=== PATIENT | male | born 1950 | race Caucasian/White ===

== ENCOUNTER 2020-07-07 13:10 | Emergency (ER) | payer MEDICARE, OTHER ==
[~2020-07-07 13:10] MED LIST: ALDACTONE 25MG25 MG PO; AUGMENTIN 875-1 EACH PO; BUMETANIDE1 MG PO; CALCIUM 600 +1 EAC7 PO; CARVEDILOL3.125 MG PO; COREG 12.5MG12.5 MG PO; ECOTRIN81 MG PO; FOLIC ACID1 MG PO; HYDROCHLOROTHIA25 MG PO; INVANZ 1 GM VIAL1 GM IM; IRON PO; K-DUR TAB 10 M10 MEQ PO; K-TAB ER20 MEQ PO; LASIX80 MG PO; LEFLUNOMIDE20 MG PO; LUTEIN20 M1 PO; MELATONIN5 MG PO; METHOTREXATE2.5 MG PO; PAXIL40 MG PO; PLAQUENIL 200200 MG PO; PREDNISONE5 MG PO; PROTONIX 40 MG40 M1 PO; STOOL SOFTENER1 EACH PO; ULTRAM50 MG PO; VASOTEC 10 MG T10 MG PO; WARFARIN SODIUM2 MG PO; WARFARIN SODIUM4 MG PO
[2020-07-07 14:27] LABS: HEMOGLOBIN 12.5 gm/dl (14.0-17.5); RED BLOOD COUNT 4.07 M/UL (4.20-5.50); WHITE BLOOD COUNT 7.2 K/UL (4.5-11.0)
== END 2020-07-07 16:36 | disposition home or self-care (01) ==
LOC: ER1 13:10
PROVIDERS: Physician Assistant
DX: F03.90 Unspecified dementia, unspecified severity, without behavioral disturbance, psychotic disturbance, mood disturbance, and anxiety (principal); I10 Essential (primary) hypertension; M06.9 Rheumatoid arthritis, unspecified; Z90.49 Acquired absence of other specified parts of digestive tract; Z79.01 Long term (current) use of anticoagulants
CPT/HCPCS: 70450; 71045; 80053; 81001; 85025; 93005; 99285

== ENCOUNTER 2020-07-22 17:30 | Emergency (ER) | payer MEDICARE, OTHER ==
[2020-07-22 18:12] LABS: HEMOGLOBIN 10.8 gm/dl (14.0-17.5); RED BLOOD COUNT 3.52 M/UL (4.20-5.50)
[2020-07-22 18:48] LABS: BUN/CREATININE RATIO 16 (0-10)
[2020-07-22] MEDS ORDERED: DOXYCYCLINE HY100 MG PO (19:33)
== END 2020-07-22 20:46 | disposition home or self-care (01) ==
LOC: ER1 17:30
PROVIDERS: Family Medicine
DX: J20.9 Acute bronchitis, unspecified (principal); F41.9 Anxiety disorder, unspecified; E66.01 Morbid (severe) obesity due to excess calories; I50.9 Heart failure, unspecified; F32.9 Major depressive disorder, single episode, unspecified; Z79.899 Other long term (current) drug therapy; Z79.01 Long term (current) use of anticoagulants; Z86.718 Personal history of other venous thrombosis and embolism
CPT/HCPCS: 36600; 71045; 80053; 80307; 81001; 82550; 82553; 82803; 83605; 83874; 83880; 84439; 84443; 84484; 85025; 85610; 87040; 93005; 99284

== ENCOUNTER 2021-12-17 07:35 | Inpatient (IN) | payer MEDICARE, OTHER ==
[~2021-12-17] VITALS: Ht 172.7 cm; Wt 135.2 kg
[~2021-12-17 07:35] MED LIST changes: +AUGMENTIN400 MG/5 M PO; +DEXAMETHASONE6 MG PO; +DOXYCYCLINE HY100 MG PO; -IRON PO; +IRON325 M1 PO; -K-TAB ER20 MEQ PO; +POTASSIUM CHLO20 ME2 PO
[2021-12-17 08:19] LABS: HEMOGLOBIN 14.3 gm/dl (14.0-17.5); RED BLOOD COUNT 4.53 M/UL (4.20-5.50); WHITE BLOOD COUNT 8.4 K/UL (4.5-11.0)
[2021-12-17] MEDS ORDERED: ACETAMINOPHEN500 MG PO (12:04)
[2021-12-17] MEDS ORDERED: CARVEDILOL12.5 MG PO (12:05)
[2021-12-17] MEDS ORDERED: WARFARIN SODIUM1 MG PO (12:08)
[2021-12-17] MEDS ORDERED: SPIRONOLACTONE25 MG PO (12:09)
[2021-12-17] MEDS ORDERED: NAMENDA5 MG PO (12:11)
[2021-12-17] MEDS ORDERED: TORSEMIDE20 MG PO (12:12)
[2021-12-17] MEDS ORDERED: SEROQUEL100 MG PO (12:13)
[2021-12-18 02:33] LABS: RED BLOOD COUNT 4.19 M/UL (4.20-5.50); WHITE BLOOD COUNT 5.8 K/UL (4.5-11.0)
[2021-12-18 23:01] LABS: ESCHERICHIA COLI Not Detected (Negative); HAEMOPHILUS INFLUENZAE Not Detected (Negative); KLEBSIELLA OXYTOCA Not Detected (Negative); KLEBSIELLA PNEUMONIAE Not Detected (Negative); KPC-CARBAPENEM-RESISTANCE GENE Not Detected (Negative); PROTEUS Not Detected (Negative); PSEUDOMONAS AERUGINOSA Not Detected (Negative); SERRATIA MARCESANS Not Detected (Negative); STAPHYLOCOCCUS AUREUS Not Detected (Negative); STREP AGALACTIAE (GROUP B) Not Detected (Negative); STREP PYOGENES (GROUP A) Not Detected (Negative); STREPTOCOCCUS Not Detected (Negative); vanA/B (VANCOMYCIN RESIST GENE Not Detected (Negative)
[2021-12-18 23:02] LABS: CANDIDA ALBICANS Not Detected (Negative); CANDIDA KRUSEI Not Detected (Negative); CANDIDA TROPICALIS Not Detected (Negative)
[2021-12-19 01:19] LABS: STAPHYLOCOCCUS DETECTED (Negative)
[2021-12-19 02:35] LABS: HEMOGLOBIN 13.1 gm/dl (14.0-17.5); RED BLOOD COUNT 4.23 M/UL (4.20-5.50); WHITE BLOOD COUNT 6.6 K/UL (4.5-11.0)
[2021-12-19 03:07] LABS: BUN/CREATININE RATIO 32 (0-10)
[2021-12-19] MEDS ORDERED: BUPROPION HCL100 M1 PO (10:21)
[2021-12-20 02:56] LABS: HEMOGLOBIN 13.8 gm/dl (14.0-17.5); RED BLOOD COUNT 4.39 M/UL (4.20-5.50); WHITE BLOOD COUNT 5.9 K/UL (4.5-11.0)
[2021-12-21 05:30] LABS: HEMOGLOBIN 13.2 gm/dl (14.0-17.5); RED BLOOD COUNT 4.31 M/UL (4.20-5.50); WHITE BLOOD COUNT 7.3 K/UL (4.5-11.0)
[2021-12-22 05:28] LABS: HEMOGLOBIN 14.3 gm/dl (14.0-17.5); RED BLOOD COUNT 4.58 M/UL (4.20-5.50)
[2021-12-22 05:31] LABS: WHITE BLOOD COUNT 9.2 K/UL (4.5-11.0)
[2021-12-22 19:07] LABS: FUNGITELL, SERUM <31 pg/mL (<80)
[2021-12-23 03:12] LABS: HEMOGLOBIN 13.6 gm/dl (14.0-17.5); RED BLOOD COUNT 4.42 M/UL (4.20-5.50); WHITE BLOOD COUNT 9.5 K/UL (4.5-11.0)
[2021-12-23 03:44] LABS: BUN/CREATININE RATIO 35 (0-10)
[2021-12-24 07:24] LABS: HEMOGLOBIN 14.2 gm/dl (14.0-17.5); RED BLOOD COUNT 4.59 M/UL (4.20-5.50)
[2021-12-24 07:47] LABS: BUN/CREATININE RATIO 37 (0-10)
[2021-12-25 02:20] LABS: HEMOGLOBIN 13.9 gm/dl (14.0-17.5); RED BLOOD COUNT 4.47 M/UL (4.20-5.50); WHITE BLOOD COUNT 9.1 K/UL (4.5-11.0)
[2021-12-25 02:39] LABS: BUN/CREATININE RATIO 37 (0-10)
[2021-12-26 06:44] LABS: HEMOGLOBIN 13.8 gm/dl (14.0-17.5); RED BLOOD COUNT 4.47 M/UL (4.20-5.50); WHITE BLOOD COUNT 10.8 K/UL (4.5-11.0)
[2021-12-26] MEDS ORDERED: BISACODYL10 MG PR (13:27)
[2021-12-26] MEDS ORDERED: CARVEDILOL25 MG PO (13:27)
[2021-12-26] MEDS ORDERED: BUDESONIDE0.5 MG/2 M NEB (13:27)
[2021-12-26] MEDS ORDERED: JANTOVEN1 MG PO (13:27)
[2021-12-26] MEDS ORDERED: IPRAT-ALBUT 0.5-3 ML NEB (13:27)
[2021-12-26] MEDS ORDERED: POLYETHYLENE GL17 GM PO (13:27)
[2021-12-26] MEDS ORDERED: HUMALOG100 UNIT/3 SC (13:27)
[2021-12-26] MEDS ORDERED: OMNICEF 300 MG300 MG PO (13:27)
[2021-12-26] MEDS ORDERED: DOCUSATE SODIU100 MG PO (13:27)
[2021-12-26 23:09] LABS: HISTOPLASMA MYCELIAL CF AB. Negative (Neg:<1:2); HISTOPLASMA MYCELIAL ID AB. Negative (Negative); HISTOPLASMA YEAST CF AB Negative (Neg:<1:2)
[2022-01-01 16:14] LABS: ASPERGILLUS FUMIGATUS IGG Negative (Negative); AUREOBASIDIUM PULLULANS IGG Negative (Negative); MICROPOLYSPORA FAENI IGG Negative (Negative); PIGEON SERUM IGG Negative (Negative); THERMOACTINOMYCES SACCHARI IGG Negative (Negative); THERMOACTINOMYCES VULGARIS IGG Negative (Negative)
== END 2021-12-26 16:13 | disposition home or self-care (01) | DRG 177 ==
LOC: ER1 07:35 → PROG CARE 10:58 → CDU 10:58 → PROG CARE 18:27
PROVIDERS: Family Medicine; Internal Medicine; Internal Medicine Pulmonary Disease; ADMIT Internal Medicine
PROC: 3E043XZ Introduction of Vasopressor into Central Vein, Percutaneous Approach (ICD-10-PCS; principal; 2021-12-17)
PROC: 3E0333Z Introduction of Anti-inflammatory into Peripheral Vein, Percutaneous Approach (ICD-10-PCS; 2021-12-17)
PROC: 5A0935A Assistance with Respiratory Ventilation, Less than 24 Consecutive Hours, High Flow/Velocity Cannula (ICD-10-PCS; 2021-12-17)
PROC: XW033E5 Introduction of Remdesivir Anti-infective into Peripheral Vein, Percutaneous Approach, New Technology Group 5 (ICD-10-PCS; 2021-12-18)
PROC: B24BZZZ Ultrasonography of Heart with Aorta (ICD-10-PCS; 2021-12-18)
PROC: 5A0955A Assistance with Respiratory Ventilation, Greater than 96 Consecutive Hours, High Flow/Velocity Cannula (ICD-10-PCS; 2021-12-18)
DX: U07.1 COVID-19 (principal); G93.41 Metabolic encephalopathy; I50.43 Acute on chronic combined systolic (congestive) and diastolic (congestive) heart failure; J12.82 Pneumonia due to coronavirus disease 2019; J15.9 Unspecified bacterial pneumonia; J96.01 Acute respiratory failure with hypoxia; N17.9 Acute kidney failure, unspecified; D84.9 Immunodeficiency, unspecified; I48.20 Chronic atrial fibrillation, unspecified; Z68.42 Body mass index [BMI] 45.0-49.9, adult; I11.0 Hypertensive heart disease with heart failure; R74.01 Elevation of levels of liver transaminase levels; L89.152 Pressure ulcer of sacral region, stage 2; I08.3 Combined rheumatic disorders of mitral, aortic and tricuspid valves; G89.4 Chronic pain syndrome; Z96.698 Presence of other orthopedic joint implants; E66.01 Morbid (severe) obesity due to excess calories; F32.A Depression, unspecified; F41.9 Anxiety disorder, unspecified; K21.9 Gastro-esophageal reflux disease without esophagitis; M06.9 Rheumatoid arthritis, unspecified; Z79.01 Long term (current) use of anticoagulants; Z86.718 Personal history of other venous thrombosis and embolism; Z99.81 Dependence on supplemental oxygen; Z85.53 Personal history of malignant neoplasm of renal pelvis; Z90.49 Acquired absence of other specified parts of digestive tract; Z87.81 Personal history of (healed) traumatic fracture; Z79.82 Long term (current) use of aspirin; Z87.891 Personal history of nicotine dependence
CPT/HCPCS: ECHO; 36415; 36600; 70450; 71045; 80048; 80053; 80061; 80162; 80202; 81001; 82140; 82550; 82553; 82607; 82803; 83036; 83605; 83735; 83880; 84100; 84439; 84443; 84484; 85025; 85027; 85379; 85610; 85652; 86140; 86331; 86602; 86609; 86612; 86671; 86698; 87040; 87077; 87081; 87086; 87150; 87186; 93005; 93306; 93880; 94640; 94664; 94760; 96374; 96375; 97110; 97110-GP-CQ; 97161; 97530; 97530-GP-CQ; 99285; A6212; J0248; J0692; J1100; J1160; J1940; J2543; J2930; J3370; J3486; J7030; J7070; Q0177; Q9967; U0002

== ENCOUNTER 2021-12-29 08:14 | Inpatient (IN) | payer MEDICARE, OTHER ==
[~2021-12-29] VITALS: Ht 172.7 cm; Wt 132.0 kg
[~2021-12-29 08:14] MED LIST changes: +ACETAMINOPHEN500 MG PO; +BISACODYL10 MG PR; +BUDESONIDE0.5 MG/2 M NEB; +BUPROPION HCL100 M1 PO; +CARVEDILOL12.5 MG PO; +CARVEDILOL25 MG PO; +DOCUSATE SODIU100 MG PO; +HUMALOG100 UNIT/3 SC; +IPRAT-ALBUT 0.5-3 ML NEB; +JANTOVEN1 MG PO; +NAMENDA5 MG PO; +OMNICEF 300 MG300 MG PO; +POLYETHYLENE GL17 GM PO; +SEROQUEL100 MG PO; +SPIRONOLACTONE25 MG PO; +TORSEMIDE20 MG PO; +WARFARIN SODIUM1 MG PO
[2021-12-29 08:46] LABS: RED BLOOD COUNT 5.27 M/UL (4.20-5.50); WHITE BLOOD COUNT 19.1 K/UL (4.5-11.0)
[2021-12-29 08:47] LABS: HEMOGLOBIN 16.6 gm/dl (14.0-17.5)
[2021-12-29] MEDS ORDERED: CARVEDILOL25 MG PO (12:18)
[2021-12-29] MEDS ORDERED: WARFARIN SODIUM1 MG PO (12:21)
[2021-12-30 02:55] LABS: HEMOGLOBIN 14.8 gm/dl (14.0-17.5)
[2021-12-30 02:57] LABS: RED BLOOD COUNT 4.71 M/UL (4.20-5.50); WHITE BLOOD COUNT 13.9 K/UL (4.5-11.0)
[2021-12-31 05:18] LABS: HEMOGLOBIN 14.9 gm/dl (14.0-17.5); RED BLOOD COUNT 4.7 M/UL (4.20-5.50)
[2021-12-31 05:19] LABS: WHITE BLOOD COUNT 9.5 K/UL (4.5-11.0)
[2022-01-01 04:14] LABS: HEMOGLOBIN 13.9 gm/dl (14.0-17.5); RED BLOOD COUNT 4.4 M/UL (4.20-5.50); WHITE BLOOD COUNT 8.7 K/UL (4.5-11.0)
[2022-01-01 15:10] LABS: HEMOGLOBIN 14.2 gm/dl (14.0-17.5); RED BLOOD COUNT 4.51 M/UL (4.20-5.50); WHITE BLOOD COUNT 9.8 K/UL (4.5-11.0)
[2022-01-02 02:02] LABS: HEMOGLOBIN 13.2 gm/dl (14.0-17.5); RED BLOOD COUNT 4.23 M/UL (4.20-5.50)
[2022-01-03 02:10] LABS: HEMOGLOBIN 12.9 gm/dl (14.0-17.5); RED BLOOD COUNT 4.13 M/UL (4.20-5.50); WHITE BLOOD COUNT 8.2 K/UL (4.5-11.0)
--- NOTE | 2022-01-04 04:27 | NUR ---
PATIENT WAS VERIFIED BY JAMES COBB AND NAZARIO WILEY. ALL LUNG BECERRA AUSCULTATED, NO BREATH SOUNDS, PULSES PALPATED, NO PULSE. DR. AMAYA WAS NOTIFIED, AND FAMILY WAS AT BEDSIDE AND AWARE.
== END 2022-01-04 06:15 | disposition expired | DRG 682 ==
LOC: ER1 08:14 → CDU 10:15 → PROG CARE 10:15
PROVIDERS: Internal Medicine; Internal Medicine Nephrology; Nurse Practitioner; Physician Assistant; ADMIT Internal Medicine
DX: N17.9 Acute kidney failure, unspecified (principal); D65 Disseminated intravascular coagulation [defibrination syndrome]; G93.41 Metabolic encephalopathy; Z66 Do not resuscitate; Z51.5 Encounter for palliative care; J96.21 Acute and chronic respiratory failure with hypoxia; J96.22 Acute and chronic respiratory failure with hypercapnia; J44.0 Chronic obstructive pulmonary disease with (acute) lower respiratory infection; I50.22 Chronic systolic (congestive) heart failure; I13.0 Hypertensive heart and chronic kidney disease with heart failure and stage 1 through stage 4 chronic kidney disease, or unspecified chronic kidney disease; E87.0 Hyperosmolality and hypernatremia; Z68.41 Body mass index [BMI] 40.0-44.9, adult; K21.9 Gastro-esophageal reflux disease without esophagitis; D50.9 Iron deficiency anemia, unspecified; D63.1 Anemia in chronic kidney disease; G89.4 Chronic pain syndrome; Z96.698 Presence of other orthopedic joint implants; R62.7 Adult failure to thrive; I48.91 Unspecified atrial fibrillation; F03.90 Unspecified dementia, unspecified severity, without behavioral disturbance, psychotic disturbance, mood disturbance, and anxiety; E86.0 Dehydration; N18.30 Chronic kidney disease, stage 3 unspecified; D72.829 Elevated white blood cell count, unspecified; I25.5 Ischemic cardiomyopathy; E83.39 Other disorders of phosphorus metabolism; F32.A Depression, unspecified; L89.152 Pressure ulcer of sacral region, stage 2; F41.9 Anxiety disorder, unspecified; E66.01 Morbid (severe) obesity due to excess calories; K59.00 Constipation, unspecified; M06.9 Rheumatoid arthritis, unspecified; R53.81 Other malaise; Z86.16 Personal history of COVID-19; Z87.01 Personal history of pneumonia (recurrent); Z79.01 Long term (current) use of anticoagulants; Z86.718 Personal history of other venous thrombosis and embolism; Z87.891 Personal history of nicotine dependence; Z90.5 Acquired absence of kidney; Z85.520 Personal history of malignant carcinoid tumor of kidney; Z88.8 Allergy status to other drugs, medicaments and biological substances; Z83.3 Family history of diabetes mellitus; Z82.49 Family history of ischemic heart disease and other diseases of the circulatory system; Z99.81 Dependence on supplemental oxygen; Z90.49 Acquired absence of other specified parts of digestive tract; Z98.890 Other specified postprocedural states
CPT/HCPCS: 36415; 36600; 70450; 70551; 71045; 80048; 80053; 80202; 80307; 81001; 82009; 82140; 82550; 82553; 82570; 82803; 82962; 83605; 83735; 83874; 83880; 84100; 84133; 84156; 84300; 84484; 85007; 85025; 85027; 85610; 85730; 86140; 87040; 87086; 92526; 92610; 93005; 94640; 94664; 94760; 94762; 96374; 96375; 99285; J0456; J0692; J1650; J1885; J2270; J3370; J7070